=== PATIENT | female | born 1985 | race Caucasian/White ===

== ENCOUNTER → 2016-08-03 | Outpatient (CLI) | payer BC ==
[2016-08-03 13:28] LABS: Follicle Stimulating Hormone 6.9 mIU/mL
[2016-08-06 15:33] LABS: Mis test requested (Blood) Estradiol
== END ==
LOC: LABWHC1 12:42
PROVIDERS: ATTEND Family Medicine
DX: E34.9 Endocrine disorder, unspecified (principal)
CPT/HCPCS: 36415; 82670; 83001; 83002; 84144; 84402; 84403

== ENCOUNTER → 2017-02-13 | Outpatient (CLI) | payer BC | END | disposition home or self-care (01) | LOC: LABWHC1 13:45 | PROVIDERS: ATTEND Family Medicine | DX: E03.9 Hypothyroidism, unspecified (principal); E34.9 Endocrine disorder, unspecified; R53.83 Other fatigue | CPT/HCPCS: 36415; 82626; 84439; 84443; 84481; 86038 ==

== ENCOUNTER 2020-08-26 01:35 | Inpatient (IN) | payer BC ==
[2020-08-26] MEDS ORDERED: CARBOPROST TROMETHAMINE 250 MCG/ML 1 ML AMP IM PRN (02:04)
[2020-08-26] MEDS ORDERED: LIDOCAINE 0.5% (PF) 5 MG/ML (50 ML SDV) SQ PRN (02:04)
[2020-08-26] MEDS ORDERED: METHYLERGONOVINE 0.2 MG/ML 1 ML AMP IM PRN (02:04)
[2020-08-26] MEDS ORDERED: OXYTOCIN 10 UNIT/ML 1 ML VIAL IM PRN (02:04)
[2020-08-26] MEDS ORDERED: TERBUTALINE 1 MG/ML VIAL SQ PRN (02:04)
[2020-08-26] MEDS ORDERED: LACTATED RINGERS 1,000 ML IV SCH (02:15)
[2020-08-26 02:42] LABS: Basophils % (A) 0 %; Eosinophils % (A) 1 %; HCT 35.1 % (34.0-46.0); HGB 11.9 gm/dL (11.4-16.0); Lymphocytes # (A) 1.3 k/uL (1.0-4.8); Lymphocytes % (A) 20 %; MCH 30.6 pg (25.0-35.0); MCV 90.1 fL (80.0-100.0); Monocytes # (A) 0.3 k/uL (0-1.0); Monocytes % (A) 5 %; Neutrophils # (A) 4.5 k/uL (1.3-7.7); Neutrophils % (A) 72 %; Platelet Count 168 k/uL (150-450); RDW 12.7 % (11.5-15.5); WBC 6.3 k/uL (3.8-10.6)
[2020-08-26] MEDS ORDERED: BUTORPHANOL 1 MG/ML 1 ML VIAL IV PRN (02:49)
--- NOTE | 2020-08-26 02:59 | P.HPOB ---
History of Present Illness H&P Date: 08/26/20 Chief Complaint: My water broke at 12:30 AM This is a 35-year-old white female 3 para 2001 EDC 09/02/2020 at 39 weeks gestation. Patient presented this morning with spontaneous amniorrhexis at home at 0030 hours, clear fluid. Regular uterine contractions to follow. She also presents with a somewhat detailed plan. She denies vaginal bleeding. history significant for blood type A-, rubella status immune. VDRL testing negative. Urine culture, hepatitis B surface antigen, HIV testing, gonorrhea and chlamydia cultures all negative. Group B strep cultures positive. One-hour Glucola within normal limits. Past medical history is significant for autoimmune issues followed it [facility]. Past surgical history colposcopy, excision of benign lipoma 2001. Current medications Zofran 4 mg as needed, vitamins daily. ALLERGIES none known. Social history patient is , she is a former tobacco smoker and quit in 2007, she denies alcohol or drug use. 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 On exam patient is 5 foot 4 inches, 152 pounds, blood pressure 110/60, vital signs are stable and she is afebrile. General physical exam is within normal limits. Cervix at time of this dictation is 8 cm dilated, 80% effaced, -2 station, vertex presentation. heart rate is consistent with reactive NST. Impression: 39 week intrauterine , active spontaneous labor. Positive group B strep cultures but antibiotics refused. Detailed plan noted. Plan: Close maternal and surveillance. Stadol at this time per patient request. Anticipate normal spontaneous vaginal delivery. Review of Systems Constitutional: Reports as per HPI Past Medical History Additional Past Medical History / Comment(s): lupus like tendencies. depression/anxiety per , pt denies History of Any Multi-Drug Resistant Organisms: None Reported Additional Past Surgical History / Comment(s): wisdom teeth as child. fatty tumor removed from back in 2001. colp in Past Anesthesia/Blood Transfusion Reactions: No Reported Reaction Past Psychological History: Anxiety, Depression Additional Psychological History / Comment(s): per Smoking Status: Former smoker Additional Past Alcohol Use History / Comment(s): quick when she was 20 - Past Family History Mother Family Medical History: No Reported History Medications and Allergies Home Medications Medication Instructions Recorded Confirmed Type Calcium Carbonate [Calcium] 1 tab PO DAILY 11/14/14 08/26/20 History Cholecalciferol [Vitamin D3] 1 tab PO DAILY 11/14/14 08/26/20 History L.acidoph,Paracasei, B.lactis 1 cap PO DAILY 11/14/14 08/26/20 History [Probiotic] [place]-3 Fatty Acids/Fish Oil [Fish 1 cap PO DAILY 11/14/14 08/26/20 History Oil 1,000 mg Softgel] Yka-Oqmk-Uwrif Acid 1 cap PO DAILY 11/14/14 08/26/20 History [-U Capsule (formulary)] Allergies Allergy/AdvReac Type Severity Reaction Status Date / Time milk Allergy Nausea & Verified 11/14/14 20:53 Vomiting & Diarrhea wheat Allergy Nausea & Verified 11/14/14 20:53 Vomiting & Diarrhea Exam Vital Signs Temp Pulse Resp BP Pulse Ox 08/26/20 02:01 97.7 F 73 16 110/60 100 Intake and Output 08/25/20 08/25/20 08/26/20 14:59 22:59 06:59 Other: Weight 68.946 kg See dictation under HPI please Results Result Diagrams: 08/26/20 02:10 Assessment and Plan Assessment: 39 week intrauterine , active spontaneous labor, group B strep cultures positive. Otherwise all signs reassuring. Plan: Continue close maternal and surveillance. Antibiotics discussed with the patient, refused. Anticipate normal spontaneous vaginal delivery. plan noted, we'll attempt to on her. Time with Patient: Less than 30
[2020-08-26] MEDS ORDERED: OXYTOCIN 30 UNITS/500 ML NS 30 UNIT in SALINE 1 500ML.BAG IV SCH (03:12)
[2020-08-26] MEDS ORDERED: SIMETHICONE 80 MG CHEWABLE PO PRN (03:23)
[2020-08-26] MEDS ORDERED: HYDROCORTISONE 2.5% RECTAL CREAM 30 GM TUBE RECTAL PRN (03:23)
[2020-08-26] MEDS ORDERED: ZOLPIDEM 5 MG TAB PO PRN (03:23)
[2020-08-26] MEDS ORDERED: diphenhydrAMINE ELIXIR 25 MG/10 ML CUP PO PRN (03:23)
[2020-08-26] MEDS ORDERED: ACETAMINOPHEN TAB 325 MG TAB PO PRN (03:23)
[2020-08-26] MEDS ORDERED: LANOLIN CREAM 5 GM TUBE TOPICAL PRN (03:23)
[2020-08-26] MEDS ORDERED: diphenhydrAMINE 50 MG/ML 1 ML VIAL IVP PRN ×2 (03:23)
[2020-08-26] MEDS ORDERED: BENZOCAINE/MENTHOL SPRAY 1 GM/SPRAY AEROSOL TOPICAL PRN (03:23)
[2020-08-26] MEDS ORDERED: diphenhydrAMINE 50 MG CAP PO PRN (03:23)
[2020-08-26] MEDS ORDERED: diphenhydrAMINE 25 MG CAP PO PRN (03:23)
--- NOTE | 2020-08-26 03:23 | P.PROBDLV ---
Vaginal Delivery Note - . Vaginal Delivery Note: This is a 35-year-old white female 3 para 2001 EDC 09/02/2020 at 39 weeks gestation. Patient presented with spontaneous amniorrhexis which occurred at home, clear fluid. Group B strep cultures were positive the patient is refusing antibiotics. otherwise unremarkable, blood type A negative, please see dictation for details. Patient progressed well through the first stage of labor became completely dilated at 0304 hrs. Perineal body was prepped and draped in usual sterile fashion. With excellent maternal expulsive efforts the head crowned in the occiput anterior position. There was a nuchal cord 1 that was reduced. The left or anterior shoulder was delivered from underneath the pubic symphysis at which time the oropharynx, nasopharynx, and external nares were all bulb suctioned on the perineal body. Patient was officially delivered of a liveborn male infant at 0309 hrs. Umbilical cord was doubly clamped and ligated, he was handed to waiting nurses for evaluation where scores of 9 and 9 at one and 5 minutes respectively were given. The placenta delivered spontaneously, it was inspected and noted to be intact with trivascular cord at 0312 hours. At this time the uterus is massaged. Careful inspection of the cervix, vagina, perineum, periurethral, and perirectal areas revealed no lacerations and no defects. Total estimated blood loss 150 mL's. All sponge needle and enhancement counts are correct at the end of the procedure. Infant's weight 7 lbs. 6 oz. or 3345 g. Patient is requesting circumcision for her infant son. The family is allowed to begin the bonding experience in the LDR.
[2020-08-26] MEDS: IBUPROFEN 600 MG TAB PO SCH ×4 (04:03→23:50)
[2020-08-26] MEDS: SENNOSIDES-DOCUSATE SODIUM 1 EACH TAB PO SCH ×2 (08:08→19:47)
[2020-08-26] MEDS ORDERED: Rhogam IMMUNE GLOBULIN 1,500 UNIT/1 ML IM ONE (19:49)
[2020-08-27 00:03] VITALS: TEMP 98.1
[2020-08-27 09:09] VITALS: RESP 16
--- NOTE | 2020-08-27 09:09 | P.DS ---
Providers Date of admission: 08/26/20 01:51 Expected date of discharge: 08/27/20 Attending physician: Terry Mckeon Primary care physician: Stated None Hospital Course: This is a 35-year-old white female 3 para 2001 EDC 09/02/2020 at 39 weeks gestation who presented to the hospital in active spontaneous labor. remarkable for rubella status immune, group B strep cultures positive, blood type A negative. Please see dictated history and physical for details. Patient was admitted and underwent a spontaneous vaginal delivery of a liveborn male with scores of 9 and 9 at one and 5 minutes respectively. He weighed 3345 g or 7 lbs. 6 oz. Estimated blood loss 150 mL's. No perineal lacerations encountered. Please see dictated delivery note for details. This morning the patient is doing well. She is voiding, ambulating, passing flatus without difficulty. Vital signs are stable and she is afebrile. Breast- feeding is going well. infant is currently undergoing bilirubin therapy. Circumcision has been performed. Patient is judged to be in very good condition for discharge home. She will follow-up in the office in 6 weeks. I have reminded her no intercourse, tampons or douching. She will use mqkz-qgy-xwinfap Advil or Aleve, or Motrin as needed for pain. She will call with any fevers shakes or chills, foul smelling or copious lochia, with the passage of large blood clots, with any pain not alleviated by hobp-wkg-jhteetm products, or indeed with any concerns. Assessment: Doing well Patient Condition at Discharge: Good Plan - Discharge Summary Discharge Rx Participant: No New Discharge Prescriptions: No Action Lmn-Nkol-Fxvbw Acid [-U Capsule (formulary)] 1 cap PO DAILY [place]-3 Fatty Acids/Fish Oil [Fish Oil 1,000 mg Softgel] 1 cap PO DAILY L.acidoph,Paracasei, B.lactis [Probiotic] 1 cap PO DAILY Cholecalciferol [Vitamin D3] 1 tab PO DAILY Calcium Carbonate [Calcium] 1 tab PO DAILY Discharge Medication List Calcium Carbonate [Calcium] 1 tab PO DAILY 11/14/14 [History] Cholecalciferol [Vitamin D3] 1 tab PO DAILY 11/14/14 [History] L.acidoph,Paracasei, B.lactis [Probiotic] 1 cap PO DAILY 11/14/14 [History] [place]-3 Fatty Acids/Fish Oil [Fish Oil 1,000 mg Softgel] 1 cap PO DAILY 11/14/14 [History] Ivj-Urgg-Cdwfd Acid [-U Capsule (formulary)] 1 cap PO DAILY 11/14/14 [History] Follow up Appointment(s)/Referral(s): Terry Mckeon MD [STAFF PHYSICIAN] - 6 Weeks Discharge Disposition: HOME SELF-CARE
[2020-08-27] MEDS: IBUPROFEN 600 MG TAB PO SCH (13:31)
[2020-08-27 18:32] VITALS: BP 103/69; PULSE 71
== END 2020-08-27 18:53 | disposition home or self-care (01) | DRG 807 ==
LOC: FBPOP 01:35 → 4FBP 01:51
PROVIDERS: ADMIT Obstetrics & Gynecology; ATTEND Obstetrics & Gynecology
PROC: 10E0XZZ Delivery of Products of Conception, External Approach (ICD-10-PCS; principal; 2020-08-26)
DX: O99.824 Streptococcus B carrier state complicating childbirth (principal); Z37.0 Single live birth; O99.344 Other mental disorders complicating childbirth; Z3A.39 39 weeks gestation of pregnancy; O69.81X0 Labor and delivery complicated by cord around neck, without compression, not applicable or unspecified; Z79.899 Other long term (current) drug therapy; Z53.29 Procedure and treatment not carried out because of patient's decision for other reasons; F41.9 Anxiety disorder, unspecified; F32.9 Major depressive disorder, single episode, unspecified; Z87.891 Personal history of nicotine dependence; Z98.890 Other specified postprocedural states; Z91.011 Allergy to milk products; Z91.018 Allergy to other foods
CPT/HCPCS: 85025; 85461; 86850; 86870; 86880; 86900; 86901

== ENCOUNTER → 2023-07-08 | Outpatient (CLI) | payer BC | END | disposition home or self-care (01) | LOC: LABWHC1 12:09 | PROVIDERS: ATTEND Family Medicine | DX: K90.41 Non-celiac gluten sensitivity (principal) | CPT/HCPCS: 36415 ==

== ENCOUNTER → 2023-07-29 | Outpatient (CLI) | payer BC ==
--- NOTE | 2023-07-30 09:32 | MM ---
Reason for Exam: Screening (asymptomatic). Baseline mammogram. Patient History: Menarche at age 13. First Full-Term at age 27. Hormonal Contraceptives for 6 months. Last menstrual period: 07/27/2023 Risk Values: Nancy 5 year model risk: 0.4%. NCI Lifetime model risk: 11.2%. Prior Study Comparison: Patient's first Mammogram. No prior studies available for comparison. Tissue Density: The breast tissue is heterogeneously dense. This may lower the sensitivity of mammography. Findings: Analyzed By CAD. There is no suspicious group of microcalcifications or new suspicious mass. Overall Assessment: Negative, BI-RAD 1 Management: Screening Mammogram of both breasts in [address] [facility] will attempt to contact patient to return for supplemental views and ultrasound if indicated. Patient should continue monthly self-breast exams. A clinical breast exam by your physician is recommended on an annual basis. This exam should not preclude additional follow-up of suspicious palpable abnormalities. Note on Nancy scores and lifetime risk: 1. A Nancy score greater than 3% is considered moderate risk. If this is the case, consider specialist referral to assess eligibility for a risk reducing agent. 2. If overall lifetime risk for the development of breast cancer is 20% or higher, the patient may qualify for future screening with alternating mammogram and breast MRI. Electronically signed and approved by: Curry Mcduffie DO
== END | disposition home or self-care (01) ==
LOC: RADMAMWWP 16:35
PROVIDERS: ATTEND Obstetrics & Gynecology
DX: Z12.31 Encounter for screening mammogram for malignant neoplasm of breast (principal)
CPT/HCPCS: 77067

== ENCOUNTER → 2023-08-13 | Outpatient (CLI) | payer BC | END | disposition home or self-care (01) | LOC: LABWHC1 15:59 | PROVIDERS: ATTEND Family Medicine | DX: Z91.02 Food additives allergy status (principal) | CPT/HCPCS: 36415 ==

== ENCOUNTER → 2024-06-29 | Outpatient (CLI) | payer BC ==
[2024-06-29 09:43] LABS: Basophils % (A) 0 %; Eosinophils # (A) 0.1 k/uL (0-0.7); Eosinophils % (A) 1 %; HCT 42.3 % (34.0-46.0); HGB 13.5 gm/dL (11.4-16.0); Lymphocytes # (A) 0.9 k/uL (1.0-4.8); Lymphocytes % (A) 24 %; MCH 29.9 pg (25.0-35.0); MCV 93.5 fL (80.0-100.0); Mean Platelet Volume 8.8; Monocytes # (A) 0.3 k/uL (0-1.0); Monocytes % (A) 8 %; Neutrophils # (A) 2.3 k/uL (1.3-7.7); Neutrophils % (A) 65 %; Platelet Count 172 k/uL (150-450); RBC 4.52 m/uL (3.80-5.40); RDW 12.7 % (11.5-15.5); WBC 3.6 k/uL (3.8-10.6)
[2024-06-29 11:02] LABS: RBC Morphology Normal
[2024-06-29 15:59] LABS: Immunoglobulin M 91.7 mg/dL (40.0-280.0)
[2024-06-29 16:16] LABS: ALT 18 U/L (8-44); AST 17 U/L (13-35); Albumin 4.5 g/dL (3.8-4.9); Alkaline Phosphatase 47 U/L (41-126); Blood Urea Nitrogen 16.8 mg/dL (9.0-27.0); C Reactive Protein <0.30 mg/dL (0.00-0.80); Calcium 9.1 mg/dL (8.7-10.3); Carbon Dioxide 25.3 mmol/L (21.6-31.8); Chloride 104 mmol/L (96-109); Globulin 2.5 g/dL (1.6-3.3); Glucose 88 mg/dL (70-110); Potassium 4.2 mmol/L (3.5-5.5); Sodium 141 mmol/L (135-145); T4, Free (Free Thyroxine) 0.99 ng/dL (0.80-1.80); Total Bilirubin 1.6 mg/dL (0.3-1.2)
[2024-06-29 16:24] LABS: Erythrocyte Sedimentation Rate 7 mm/Hr (0-20)
[2024-06-29 19:47] LABS: Immunoglobulin E 32.2 IU/mL (0.00-114.00)
== END | disposition home or self-care (01) ==
LOC: LABWHC1 08:56
PROVIDERS: ATTEND Family Medicine
DX: D72.819 Decreased white blood cell count, unspecified (principal); M06.9 Rheumatoid arthritis, unspecified; E78.49 Other hyperlipidemia; E61.7 Deficiency of multiple nutrient elements; L65.0 Telogen effluvium; K90.41 Non-celiac gluten sensitivity; H05.229 Edema of unspecified orbit
CPT/HCPCS: 36415; 80053; 82306; 82525; 82607; 82626; 82746; 82784; 82785; 84207; 84255; 84403; 84425; 84439; 84443; 84590; 84630; 85025; 85652; 86140

== ENCOUNTER → 2024-08-25 | Outpatient (CLI) | payer BC ==
--- NOTE | 2024-08-25 09:02 | MM ---
Reason for Exam: Clinical finding. Last mammogram was performed 1 year(s) and 1 month(s) ago. Indicated Problems: Lump or thickening of the left side for 2 Week(s). Patient History: Menarche at age 13. First Full-Term at age 27. Hormonal Contraceptives for 6 months. Last menstrual period: 08/14/2024 Risk Values: Nancy 5 year model risk: 0.5%. NCI Lifetime model risk: 11.2%. Tissue Density: The breasts are heterogeneously dense, which may obscure small masses. Findings: Analyzed By CAD. Palpable marker placed along the upper outer quadrant of the left breast. No discrete underlying abnormality or significant change is seen. Overall Assessment: Incomplete: need additional imaging evaluation, BI-RAD 0 Management: Diagnostic Breast Ultrasound of the left breast. [facility], , 08/25/2024 8:59 AM. Electronically signed and approved by: Jorge Faria M.D. Radiologist
--- NOTE | 2024-08-25 09:30 | USB ---
Reason for Exam: Clinical finding. Patient History: Menarche at age 13. First Full-Term at age 27. Hormonal Contraceptives for 6 months. Risk Values: Nancy 5 year model risk: 0.5%. NCI Lifetime model risk: 11.2%. Technique: Method: Targeted. Prior Study Comparison: 07/29/2023 Bilateral MG screening mammo w CAD, [facility]. Findings: The upper outer quadrant of the left breast, the axilla of the left breast and the retroareolar of the left breast were scanned. Ultrasound left breast 1:00 to 3:00 including scanning of the subareolar region and axilla. Along the upper outer subareolar region, there is a tiny 5 mm cyst which seems to correspond to the patient indicated palpable site. Dense tissues are present. No other solid or cystic lesion or axillary lymphadenopathy. Overall Assessment: Benign, BI-RAD 2 Management: Screening Mammogram of both breasts at age 41. Unless there is an indication to start sooner. Further clinical management of any suspicious palpable areas. The patient can continue monthly self breast exams. If any changes occur, the patient can be rescanned. Results were given to the patient verbally at the time of exam. [facility], , 08/25/2024 9:27 AM. Electronically signed and approved by: Jorge Faria M.D. Radiologist
== END | disposition home or self-care (01) ==
LOC: RADMAMWWP 08:03
PROVIDERS: ATTEND Obstetrics & Gynecology
DX: R92.333 Mammographic heterogeneous density, bilateral breasts (principal); N63.20 Unspecified lump in the left breast, unspecified quadrant; R68.89 Other general symptoms and signs; Z92.0 Personal history of contraception
CPT/HCPCS: 77061; 77065

== ENCOUNTER → 2024-12-06 | Outpatient (CLI) | payer BC | END | disposition home or self-care (01) | LOC: LABWHC1 13:19 | PROVIDERS: ATTEND Family Medicine | DX: Z02.83 Encounter for blood-alcohol and blood-drug test (principal) | CPT/HCPCS: 36415 ==